=== PATIENT | female | born 1955 | race American Indian/Alaskan Native ===

== ENCOUNTER 2017-03-02 17:18 | Emergency (ER) | payer OTHER ==
[2017-03-02 17:36] VITALS: BP 196/78
--- NOTE | 2017-03-02 19:43 | Emergency Department Report ---
ED General Adult HPI - General Chief complaint: Extremity Injury, Lower Stated complaint: BILAT LEG PAIN Time Seen by Provider: 03/02/17 19:36 Source: patient, family () Mode of arrival: Ambulatory Limitations: No Limitations - History of Present Illness Initial comments: 61 yo femal with h/o left knee surgery for ACL tear her today with c/o left knee pain and bilateral leg pain which originates in her lower back. Pt denies urinary and fecal incontinence or retention. She has no numbness in her extremities or saddle area. no fever, no chill, no nausea or vomiting. She regularly picks up a 29 pould grandchild and was recently m oving around furniture at home. 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 denies: weakness Treatments Prior to Arrival: NSAID, Aspirin - Related Data Previous Rx's Medication Instructions Recorded Last Taken Type Dexamethasone 6 mg PO QID #14 tab 03/02/17 Unknown Rx Indomethacin 50 mg PO BID PRN #20 capsule 03/02/17 Unknown Rx Lidocaine [Lidoderm] 1 each TP Q12HR #1 box 03/02/17 Unknown Rx Allergies Allergy/AdvReac Type Severity Reaction Status Date / Time metronidazole [From Flagyl] AdvReac Rash Verified 03/02/17 17:38 ED Review of Systems ROS: Stated complaint: BILAT LEG PAIN Other details as noted in HPI Constitutional: denies: chills, fever Eyes: denies: eye pain, eye discharge, vision change ENT: denies: ear pain, throat pain Respiratory: denies: cough, shortness of breath, wheezing Cardiovascular: denies: chest pain, palpitations Endocrine: no symptoms reported Gastrointestinal: denies: abdominal pain, nausea, diarrhea Genitourinary: denies: urgency, dysuria, discharge Musculoskeletal: denies: back pain, joint swelling, arthralgia Skin: denies: rash, lesions Neurological: denies: headache, weakness, paresthesias Psychiatric: denies: anxiety, depression Hematological/Lymphatic: denies: easy bleeding, easy bruising ED Past Medical Hx - Past Medical History Previous Medical History?: No - Surgical History Past Surgical History?: Yes Additional Surgical History: left knee - Social History Smoking Status: Never Smoker Substance Use Type: Alcohol - Medications Home Medications: Home Medications Medication Instructions Recorded Confirmed Last Taken Type Dexamethasone 6 mg PO QID #14 tab 03/02/17 Unknown Rx Indomethacin 50 mg PO BID PRN #20 capsule 03/02/17 Unknown Rx Lidocaine [Lidoderm] 1 each TP Q12HR #1 box 03/02/17 Unknown Rx ED Physical Exam - General Limitations: No Limitations General appearance: alert, in no apparent distress - Head Head exam: Present: atraumatic, normocephalic - Eye Eye exam: Present: normal appearance - ENT ENT exam: Present: mucous membranes moist - Neck Neck exam: Present: normal inspection - Respiratory Respiratory exam: Present: normal lung sounds bilaterally. Absent: respiratory distress - Cardiovascular Cardiovascular Exam: Present: regular rate, normal rhythm. Absent: systolic murmur, diastolic murmur, rubs, gallop - GI/Abdominal GI/Abdominal exam: Present: soft, normal bowel sounds - Extremities Exam Extremities exam: Present: normal inspection, full ROM, tenderness (laterla to both patella and lateral to both ankle, ) - Back Exam Back exam: Present: normal inspection, full ROM, tenderness (in the si joints bilateally), paraspinal tenderness. Absent: vertebral tenderness - Neurological Exam Neurological exam: Present: alert, oriented X3, CN II-XII intact, other (no saddle anesthesia, normal straight leg raise, no numbness). Absent: motor sensory deficit - Psychiatric Psychiatric exam: Present: normal affect, normal mood - Skin Skin exam: Present: warm, dry, intact, normal color. Absent: rash ED Course Vital Signs 03/02/17 17:33 Temperature 98.4 F Pulse Rate 69 Respiratory 18 Rate Blood Pressure 196/78 O2 Sat by Pulse 99 Oximetry ED Medical Decision Making - Radiology Data Radiology results: report reviewed (XRAY LUMBAR: L4-L5/L5-S1 FACET JOINT ARTHROPATHY LEFT KNEE XRAY: MILD TO MODERATE DJD) Critical care attestation.: If time is entered above; I have spent that time in minutes in the direct care of this critically ill patient, excluding procedure time. ED Disposition Clinical Impression: Sciatica associated with disorder of lumbar spine, Arthritis of knee Disposition: - TO HOME OR SELFCARE Is pt being admited?: No Does the pt Need Aspirin: No Condition: Stable Instructions: Sciatica (ED), Lumbar Radiculopathy (ED), Degenerative Disc Disease (ED) Additional Instructions: return to the emergency department if you begin to urinate or have bowel movement on your self or if you cannot urinate or have a bowel movement. Return isd your legs go numb or you ar unable to walk. Prescriptions: Dexamethasone 6 mg PO QID #14 tab Indomethacin 50 mg PO BID PRN #20 capsule PRN Reason: Analgesia Lidocaine [Lidoderm] 1 each TP Q12HR #1 box Referrals: PRIMARY CARE, [Primary Care Provider] - 3-5 Days [facility] [Outside] - 3-5 Days
[2017-03-02] MEDS ORDERED: DECADRON PO ONE (19:49)
[2017-03-02] MEDS ORDERED: TORADOL IM ONE (19:50)
--- NOTE | 2017-03-02 21:05 | XRay Report ---
FINAL REPORT EXAM: XR SPINE LUMBOSACRAL 2-3V HISTORY: si joint pain TECHNIQUE: Lumbar spine five views PRIORS: None. FINDINGS: Vertebral bodies demonstrate normal height and alignment. The disc spaces are within normal limits. There is no evidence of spondylolisthesis. Transverse and spinous processes are intact SI joints are unremarkable. There is facet joint arthropathy L4-5 and L5-S1 IMPRESSION: Facet joint arthropathy at L4-5 and L5-S1
--- NOTE | 2017-03-02 21:21 | XRay Report ---
FINAL REPORT EXAM: XR KNEE 3V LT HISTORY: left knee pain TECHNIQUE: Left knee three views PRIORS: None. FINDINGS: There is patellofemoral and medial tibiofemoral joint space narrowing. Surgical anchors are present patella. No evidence for joint effusion. No acute fracture or dislocation. No focal bony lesions are seen. IMPRESSION: [id number] degenerative change greatest at the patellofemoral joint space Surgical anchors noted within patella
== END 2017-03-02 21:56 | disposition home or self-care (01) ==
LOC: ED 17:18
DX: M54.40 Lumbago with sciatica, unspecified side (principal); M17.12 Unilateral primary osteoarthritis, left knee; Z88.8 Allergy status to other drugs, medicaments and biological substances
CPT/HCPCS: 72100; 73562; 96372; 99283; J1885; J8540

== ENCOUNTER 2017-03-10 06:49 | Emergency (ER) | payer SELFPAY ==
[2017-03-10 07:25] VITALS: BP 199/97
--- NOTE | 2017-03-10 08:21 | Emergency Department Report ---
HPI - General Chief Complaint: Back Pain/Injury Time Seen by Provider: 03/10/17 08:17 - HPI HPI: This is a 61-year-old female low who presents to ED complaining of worsening sciatic pain times a week. Patient was seen here last week and states that she was not able to follow-up due to not having any insurance. Patient states the results for a couple of days but medication she was given is really not helping with her pain. Patient states she did not have any recent injuries or trauma. She denies fevers/chills/shortness of breath/chest pain/calf pains extremity swelling or redness. ED Past Medical Hx - Past Medical History Previous Medical History?: Yes Additional medical history: Back pain - Surgical History Past Surgical History?: Yes Additional Surgical History: left knee - Social History Smoking Status: Former Smoker Substance Use Type: Alcohol, Non Opiate Pain, Prescribed - Medications Home Medications: Home Medications Medication Instructions Recorded Confirmed Last Taken Type Dexamethasone 6 mg PO QID #14 tab 03/02/17 Unknown Rx Indomethacin 50 mg PO BID PRN #20 capsule 03/02/17 Unknown Rx Lidocaine [Lidoderm] 1 each TP Q12HR #1 box 03/02/[address] (Nf) 50 mg PO BID #24 tablet.dr 03/10/17 Unknown Rx Lidocaine [Lidocaine GEL] 1 applic TP TID #1 tube 03/10/17 Unknown Rx traMADol [Ultram 50 MG tab] 50 mg PO Q6H #20 tablet 03/10/17 Unknown Rx ED Review of Systems ROS: Stated complaint: BACK AND LOWER EXTREMITY PAIN Other details as noted in HPI Constitutional: denies: chills, fever Eyes: denies: eye pain, eye discharge, vision change ENT: denies: ear pain, throat pain Respiratory: denies: cough, shortness of breath, wheezing Cardiovascular: denies: chest pain, palpitations Endocrine: no symptoms reported Gastrointestinal: denies: abdominal pain, nausea, diarrhea Genitourinary: denies: urgency, dysuria, discharge Musculoskeletal: denies: back pain, joint swelling, arthralgia Skin: denies: rash, lesions Neurological: denies: headache, weakness, paresthesias Psychiatric: denies: anxiety, depression Hematological/Lymphatic: denies: easy bleeding, easy bruising Physical Exam - Physical Exam Vital Signs: Vital Signs 03/10/17 07:21 Temperature 97.5 F L Pulse Rate 60 Respiratory 18 Rate Blood Pressure 199/97 O2 Sat by Pulse 97 Oximetry Physical Exam: GENERAL: Alert and oriented x3, no apparent distress, Normal Gait, atraumatic. HEAD: Head is normocephalic and a-traumatic. EYES: Extra ocular muscles are intact. Pupils are equal, round, and reactive to light and accommodation. NOSE: Nose symetrical, Nontender,Nares appeared normal. MOUTH:Mouth is well hydrated and without lesions. NECK: Supple. Non edematous, No carotid bruits. No lymphadenopathy or thyromegaly. No C-spine tenderness LUNGS: Symetrical with respiration, CTAB. HEART: S1, S2 present, regular rate and rhythm BACK: Full range of motion, no spinal tenderness, nontender to palpation. EXTREMITIES/MUSCULOSKELETAL: No cyanosis, clubbing, rash, lesions or edema. Full ROM bilaterally. LE Pulses 2+ bilaterally. LE and UE 5+ strength bilaterally, straight leg raise negative bilaterally. Tenderness to palpation of the lumbar region surrounding muscles around glute NEUROLOGIC: The patient is cooperative with no focal neurologic deficits. Normal speech. Normal sensation in bilateral upper and lower extremities, No loss of sensation on all extremities, SKIN: Warm and dry, No lesions, No ulceration or induration present. ED Course Vital Signs 03/10/17 07:21 Temperature 97.5 F L Pulse Rate 60 Respiratory 18 Rate Blood Pressure 199/97 O2 Sat by Pulse 97 Oximetry ED Medical Decision Making - Medical Decision Making 61-year-old female who presents with a lumbar radiculopathy ED course: Patient received trmadol pain medication in ED. I discussed the patient and she would need to follow-up to seek medical management of her sciatica. I discussed with the patient to take medications as prescribed. 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 Patient has no acute distress. Patient is able to ambulate freely with no problems. She has no neurologically deficit. Vital signs are normal patient is in no acute distress. Critical care attestation.: If time is entered above; I have spent that time in minutes in the direct care of this critically ill patient, excluding procedure time. ED Disposition Clinical Impression: Lumbar radiculopathy, chronic Arthralgia Qualifiers: Joint pain location: knee Laterality: bilateral Qualified Code(s): M25.561 - Pain in right knee Disposition: DC- TO HOME OR SELFCARE Is pt being admited?: No Does the pt Need Aspirin: No Condition: Stable Instructions: Trigger Point Pain (ED), Lumbar Radiculopathy (ED), Degenerative Disc Disease (ED) Additional Instructions: Please return to ED if she have worsening symptoms such as inability to walk or weakness or no feeling to the legs. Follow-up with her primary care physician as referred. Prescriptions: Diclofenac Dr (Nf) 50 mg PO BID #24 tablet. Lidocaine [Lidocaine GEL] 1 applic TP TID #1 tube traMADol [Ultram 50 MG tab] 50 mg PO Q6H #20 tablet Referrals: PRIMARY CARE, [Primary Care Provider] - 3-5 Days [facility] [Outside] - 3-5 Days [facility] [Outside] - 3-5 Days [facility] [Outside] - 3-5 Days Forms: Work/School Release Form Time of Disposition: 09:07
[2017-03-10] MEDS ORDERED: ULTRAM PO ONE (09:00)
== END 2017-03-10 09:18 | disposition home or self-care (01) ==
LOC: ED 06:49
DX: M54.16 Radiculopathy, lumbar region (principal); M25.561 Pain in right knee; G89.29 Other chronic pain; Z87.891 Personal history of nicotine dependence; Z88.8 Allergy status to other drugs, medicaments and biological substances
CPT/HCPCS: 99282